=== PATIENT | female | born 1970 | race Caucasian/White ===

== ENCOUNTER 2016-11-25 17:12 | Emergency (ER) | payer MEDICAID ==
[2016-11-25 17:37] VITALS: BMI 31.8
[2016-11-25 17:38] VITALS: BP 112/71; PULSE 65; RESP 20; TEMP 99.1; O2SAT 97
--- NOTE | 2016-11-25 18:31 | C.PDOC ---
History Of Present Illness 46 y/o F c no PMHx p/w R leg pain x 3 months, gradually worsening daily. She states the pain is in the lateral R leg, seems to radiate to R lower back and sometimes down R leg into foot. Denies trauma, injury, fever, numbness, weakness , dysuria, hematuria, constipation, diarrhea, vomiting, loss of appetite. Time Seen by Provider: 11/25/16 17:42 Chief Complaint (Nursing): Lower Extremity Problem/Injury Past Medical History Vital Signs: Last Vital Signs Temp 99.1 F 11/25/16 17:37 Pulse 65 11/25/16 17:37 Resp 20 11/25/16 17:37 BP 112/71 11/25/16 17:37 Pulse Ox 97 11/25/16 18:32 - Medical History PMH: Denies: Chronic Kidney Disease Surgical History: Family History: States: Unknown Family Hx - Social History Hx Tobacco Use: No Hx Alcohol Use: No Hx Substance Use: No - Immunization History Hx Tetanus Toxoid Vaccination: No Hx Influenza Vaccination: No Hx Pneumococcal Vaccination: No Review Of Systems Except As Marked, All Systems Reviewed And Found Negative. Constitutional: Negative for: Fever Cardiovascular: Negative for: Chest Pain Physical Exam - Physical Exam Additional Physical Exam Comments: Constitutional: No acute distress. Head: Normocephalic. Atraumatic. Eyes: PERRL. ENT: Moist mucous membranes. Neck: Supple. Cardiovascular: Regular rate. Radial pulse 2+ bilaterally. Chest: No tenderness. Respiratory: Clear to auscultation bilaterally. GI: Soft. Nontender. Nondistended. Back: No CVA tenderness. No midline tenderness. Musculoskeletal: No tenderness or swelling of extremities. Skin: No rash. Neurologic: Alert, no focal deficit. ED Course And Treatment O2 Sat by Pulse Oximetry: 97 Medical Decision Making Medical Decision Making: Symptoms consistent with lumbar radiculopathy. Treat with NSAIDs. Due to duration of symptoms, will obtain imaging but will likely require MRI as outpatient and further management. XR LS spine, hip, and femur negative for dislocation or fractures. Disposition - Disposition Disposition: HOME/ ROUTINE Disposition Time: 18:35 Condition: STABLE Instructions: Lumbar Radiculopathy (ED) Forms: [employer] (Yakut) - Clinical Impression Clinical Impression: Lumbar radiculopathy - Scribe Statement The provider has reviewed the documentation as recorded by the Stephan Barkley All medical record entries made by the Stephan were at my direction and personally dictated by me. I have reviewed the chart and agree that the record accurately reflects my personal performance of the history, physical exam, medical decision making, and the department course for this patient. I have also personally directed, reviewed, and agree with the discharge instructions and disposition.
--- NOTE | 2016-11-25 18:59 | RAD ---
PROCEDURE: Radiographs of the Lumbar Spine. HISTORY: back pain COMPARISON: None available. FINDINGS: BONES: Alignment appears satisfactory. No listhesis. No acute displaced fracture identified. DISC SPACES: Unremarkable. OTHER FINDINGS: None. IMPRESSION: No acute displaced fracture or subluxation identified.
--- NOTE | 2016-11-25 19:00 | RAD ---
Indication: Hip pain Right hip with pelvis Comparison: None available Findings: No acute displaced fracture or dislocation identified. Sacroiliac joints appear intact. Mild constipation. Soft tissues appear unremarkable. No evidence of radiopaque foreign body. Impression: No acute displaced fracture or dislocation evident. If high clinical index of suspicion, suggest cross-sectional imaging for further evaluation. Otherwise, if symptoms persist or if there is continued clinical concern, x-ray follow-up in 7-10 days should be considered.
--- NOTE | 2016-11-25 19:02 | RAD ---
Indication: Leg pain Right femur radiographs Comparison: None available Findings: No acute displaced fracture or dislocation. Soft tissues appear unremarkable. No evidence of radiopaque foreign body. Impression: No acute displaced fracture or dislocation identified. If symptoms persist or if there is continued clinical concern, x-ray follow-up in 7-10 days should be considered.
== END 2016-11-25 18:54 | disposition home or self-care (01) ==
LOC: C.ER 17:12
DX: M54.16 Radiculopathy, lumbar region (principal)
CPT/HCPCS: 72100; 73502; 73552; 96372; 99283; J1885

== ENCOUNTER 2017-09-05 19:40 | Emergency (ER) | payer MEDICAID ==
[2017-09-05 19:40] VITALS: BMI 31.8
[2017-09-05 20:10] VITALS: BP 116/75; PULSE 78; TEMP 98.5; O2SAT 98
--- NOTE | 2017-09-05 20:17 | C.PDOC ---
History Of Present Illness 47 year old female presents to the ED complaining of itchiness and redness to both eyes for 2 days. Patient denies any vision changes, injury, trauma, or discharge. Patient has a history of laser eye surgery bilaterally. Time Seen by Provider: 09/05/17 20:02 Chief Complaint (Nursing): Eye Problem History Per: Patient History/Exam Limitations: no limitations Onset/Duration Of Symptoms: Days Current Symptoms Are (Timing): Still Present Injury To Eye?: No Associated Symptoms: Itching, Other (Redness). denies: Discharge From Eye Past Medical History Reviewed: Historical Data, Nursing Documentation, Vital Signs Vital Signs: Last Vital Signs Temp 98.5 F 09/05/17 19:54 Pulse 78 09/05/17 19:54 Resp 20 09/05/17 20:24 BP 116/75 09/05/17 19:54 Pulse Ox 98 09/05/17 20:30 - Medical History PMH: No Chronic Diseases Denies: Chronic Kidney Disease Surgical History: Family History: States: No Known Family Hx - Social History Hx Tobacco Use: No Hx Alcohol Use: No Hx Substance Use: No - Immunization History Hx Tetanus Toxoid Vaccination: No Hx Influenza Vaccination: Yes Hx Pneumococcal Vaccination: No Review Of Systems Except As Marked, All Systems Reviewed And Found Negative. Eyes: Positive for: Redness (Bilaterally), Other (Itching bilaterally). Negative for: Vision Change Physical Exam - Physical Exam Appears: Non-toxic, No Acute Distress Skin: Normal Color, Warm, Dry Head: Normacephalic Eye(s): bilateral: PERRL, EOMI, Other (Conjuctival injection; no discharge; no foreign body) Nose: Normal Neck: Supple Chest: Symmetrical Extremity: Bilateral: Atraumatic Neurological/Psych: Oriented x3, Normal Speech Gait: Steady ED Course And Treatment O2 Sat by Pulse Oximetry: 98 (RA) Pulse Ox Interpretation: Normal Medical Decision Making Medical Decision Making: Impression: Allergic conjunctivitis Plan: Claritin 10mg PO Visual acuity test Upon reevaluation, patient ready and stable for discharge. Patient given eye drops and instructed to follow up with PMD or optho in 2-3 days. Disposition Counseled Patient/Family Regarding: Diagnosis, Need For Followup, Rx Given - Disposition Referrals: [facility] [Outside] Disposition: HOME/ ROUTINE Disposition Time: 20:15 Condition: GOOD Prescriptions: Loratadine [Claritin] 10 mg PO DAILY #30 tab Olopatadine HCl [Patanol] 5 ml OU DAILY #1 bottle Instructions: Seasonal Allergies (DC) Print Language: RUSSIAN - POA Present On Arrival: None - Clinical Impression Clinical Impression: Allergic conjunctivitis - PA / [employer] / Resident Statement MD/DO has reviewed & agrees with the documentation as recorded. - Scribe Statement The provider has reviewed the documentation as recorded by the Scribe (Alis Bell) All medical record entries made by the Scribe were at my direction and personally dictated by me. I have reviewed the chart and agree that the record accurately reflects my personal performance of the history, physical exam, medical decision making, and the department course for this patient. I have also personally directed, reviewed, and agree with the discharge instructions and disposition.
[2017-09-05 20:25] VITALS: RESP 20
== END 2017-09-05 20:24 | disposition home or self-care (01) ==
LOC: C.ER 19:40
DX: H10.13 Acute atopic conjunctivitis, bilateral (principal)